=== PATIENT | female | born 1965 | race Caucasian/White ===

== ENCOUNTER → 2016-08-08 | Outpatient (CLI) | payer OTHER ==
[~2016-08-08] VITALS: Ht 175.3 cm; Wt 127.6 kg
[~2016-08-08] MED LIST: AMBIEN 5 MG TABL5 M1 PO; BUSPIRONE HCL10 MG PO; CYMBALTA60 MG PO; ELIQUIS5 MG PO; HYDROCHLOROTHIA25 M2 PO; IRON325 PO; LEVOTHYROXIN0.075 MG PO; LIPITOR10 MG PO; METHADONE HCL5 MG PO; NEURONTIN600 MG PO; VENTOLIN HFA 1818 GM INH; XANAX 0.25 MG0.25 MG PO; ZYPREXA20 MG PO
--- NOTE | ~2016-08-08 | HPC ---
[facility] [address] [address] PAIN MANAGEMENT CONSULTATION Name: JOSELITO LEES Room #: REG ATIF Fields#: [id number] Admission: 08/08/16 Attend Phys: Khang Francis DO Discharge: Date of : 67 Report #: [id number] THIS REPORT FOR: //name// CC: LUMA Francis HISTORY OF PRESENT ILLNESS: The patient is a 50-year-old female. She was prior seen 06/20/2016. We had continued the patient on methadone 5 mg q. 8 hours, gabapentin 600 mg 4 times a day. She notes she has 60% overall improvement of functional status with this medication. She returns to the pain clinic today. We had a prolonged visit from 8:30 to 9:00 a.m. The patient notes she was in the hospital in [facility] this past June. She tells me she had pneumonia and developed sepsis and was told she had acute renal failure and was "2 hours from dying." The latter statement seems rather dramatic. Nonetheless the patient did make a remarkable turnaround. She was in the hospital for 6-7 days. She notes she is doing reasonably well now, rates her pain as 6 on a 0-10 visual analog scale. Primary pain is in the mid low back, some radiating into the right hip. She notes medications are providing sufficient analgesia to participate in activities of daily living. States she still is slow to return to full activities due to deconditioning that occurred while she was ill. She was told that her renal function has returned to normal. I noted that methadone was a good analgesic to be on for renal function; however, I was concerned about gabapentin as it is 100% renally excreted. The patient is not showing any side effects from buildup of gabapentin metabolites. PHYSICAL EXAMINATION: GENERAL: She is a 50-year-old female. She remains moderately obese with a BMI of 41.5 kilograms per meter squared. VITAL SIGNS: Blood pressure is 129/79, pulse 90, respirations are 18. NEUROLOGIC: Alert and oriented to person, place and time, judged to be a reasonable historian. MUSCULOSKELETAL: Rises from chair using armrest. Tandem gait with diffuse tenderness across the low back. Lower extremity strength is symmetric, some pain with palpation over the right hip, though again notes significant change in gait compatible with significant degenerative joint disease, right hip. ASSESSMENT: Neuropathic pain requiring complex medication management status post decompressive laminectomy, chronic pain syndrome requiring complex medication management. RECOMMENDATIONS: We attempted to get urine drug screen at last visit, but the patient could not urinate. We have elected to get a serum screen today with the pain medication profile. We will also get a BUN and creatinine as well simply to follow up on renal function. I have taken the liberty of renewing current medications including methadone 5 mg q. 8 hours, 90 tablets with a release today in 4 weeks. Follow up in 2 months for reevaluation. [address] [address] PAIN MANAGEMENT CONSULTATION Name: JOSELITO LEES Room #: REG ATIF Fields#: [id number] Admission: 08/08/16 Attend Phys: Khang Francis DO Discharge: Date of : 67 Report #: [id number] We reviewed the fact that opiate medications are being used to provide analgesia adequate to support activities of daily living, not attempting to achieve a specific pain score on the 0-10 Visual Analog Scale. The current opiate medications are providing sufficient analgesia to allow the patient to participate in activities of daily living. The patient is not exhibiting any aberrant behavior suggestive of drug diversion. The patient is not having any adverse reactions to medications. The patient is not suffering from daytime somnolence or mental acuity changes. The patient is managing opiate-induced constipation with appropriate xqyc-pnl-zxvwsnn agents and dietary considerations. The patient was counseled on concern for caution with operating a motor vehicle while using opiate medications. A physical exam was performed and the patient's functional status was evaluated. All patients with back pain were advised against the bed rest greater than 4 days and were advised to return to normal activities. Pain score assessment was noted and the treatment plan was reviewed with the patient. All current medications, both prescribed and OTC were reviewed and reconciled on the electronic medical record. Tobacco screening was accomplished and smoking cessation was advised when indicated. BMI was noted and diet/exercise modification was recommended for all patients following outside normal parameters. I reviewed with the patient today their responsibilities to safeguard prescription medications, reviewed their responsibility to utilize medications only as prescribed by the physician. They are to seek and receive pain medications only from 1 physician group ( [facility]). They are to use 1 pharmacy and keep the clinic informed if they change pharmacies. Their responsibilities include making followup visits in a timely fashion and to avoid abrupt discontinuation of medication usage. Their responsibilities further include bringing their medications (bottles from the pharmacy with residual pills) to the visit for possible confirmation of pill counts and the patient understands it is their responsibility to submit to random drug screens to ensure both that the medications prescribed are present, and that no other controlled substances are present. All prescriptions provided today were generated electronically. <ELECTRONICALLY SIGNED> By: Khang Francis DO 08/11/16 1228 [id number] Khnag Francis, /nt
[2016-08-08 08:33] VITALS: BP 129/79
== END | disposition home or self-care (01) ==
LOC: PAIN 06:50
PROVIDERS: Anesthesiology Pain Medicine
DX: G62.9 Polyneuropathy, unspecified (principal); G89.4 Chronic pain syndrome

== ENCOUNTER → 2016-11-24 | Outpatient (CLI) | payer OTHER ==
[~2016-11-24] VITALS: Ht 175.3 cm; Wt 130.2 kg
[~2016-11-24] MED LIST changes: +APAP500 PO; +LEVOTHYROXINE0.05 MG PO
--- NOTE | ~2016-11-24 | HPC ---
[facility] [address] [address] PAIN MANAGEMENT CONSULTATION Name: JOSELITO LEES Room #: REG ATIF Fields#: [id number] Admission: 11/24/16 Attend Phys: Khang Francis DO Discharge: Date of : 67 Report #: [id number] THIS REPORT FOR: //name// CC: LUMA Francis The patient is a 51-year-old female being treated for neuropathic pain, status post lumbar decompressive laminectomy, requiring complex medication management. Last seen in the pain clinic on 08/08/2016. I had ordered a BUN and creatinine and a serum drug screen. Unfortunately, the drug screen seems to have been not accomplished; it was "lost" in the lab, however, the BUN and creatinine came back appropriate at 13 and 1.0. She returns to pain clinic today noting pain continues in the low back, right greater than left through the mid leg. She has chronic right foot drop and wears an AFO. She notes back pain was worse. The last 5 weeks, she was in [place], helping sell her [place] home and moving out. She also had a grandchild that was born in the interim. Apparently, they live in the [place] area. It is important because the patient was in [place] for a long time and ran out of her methadone, appropriately she weaned down rather than continuing 5 mg t.i.d. up to the end, she dropped down to b.i.d. and then at bedtime. With this, she noted significant increase in her pain up to an 8/10. Notes pain is in the right low back, exacerbated with standing, walking and stooping. She describes pain as constant, shooting, aching, pulling and throbbing. PHYSICAL EXAMINATION: Shows a 51-year-old female, moderately obese with a BMI of 42.4 kg/m2. Blood pressure is marginally elevated at 152/82, pulse 96, and respirations are 14. Alert and oriented to person, place and time, judged to be a reasonable historian. Cranial nerves 2-12 are grossly intact. She does have a little bit of disconjugate gaze. Rises from chair using armrest. Diffuse tenderness across the low back. Gait is tandem. Right leg shows some modest decrease in strength. Positive straight leg raise with chronic right anterior tibialis weakness and wearing a right AFO. ASSESSMENT: Neuropathic pain, requiring complex medication management, stable on baseline medications, status post lumbar decompressive laminectomy. RECOMMENDATION: Resume methadone 5 mg q. 8 hours, though I suggested that she start taking one in the morning for a few days and perhaps a half or 1 in the afternoon and we will evaluate what she needs. I have given her quantity sufficient to resume up to 3 a day (90 tablets with the second refill in 4 weeks). Follow up in 2 months for reevaluation. We will likely get a urine drug screen at that time. [address] [address] PAIN MANAGEMENT CONSULTATION Name: JOSELITO LEES Room #: MAGNUS Fields#: [id number] Admission: 11/24/16 Attend Phys: Khang Francis DO Discharge: Date of : 67 Report #: [id number] The patient was seen for a prolonged visit today, approximately 25 minutes was spent with the patient, counseling the patient regarding need to maintain steady dose of her current medication, although I did applaud her efforts at weaning down and we are always looking for the lowest dose possible, so hopefully since she did have a short opiate free "vacation," we can resume dose at a slightly lower level. Discharged in good and stable condition. <ELECTRONICALLY SIGNED> By: Khang Francis DO 11/26/16 0758 [id number] Khang Francis DO /nt
[2016-11-24 09:58] VITALS: BP 152/82
== END | disposition home or self-care (01) ==
LOC: PAIN 06:50
DX: M79.2 Neuralgia and neuritis, unspecified (principal); Z98.890 Other specified postprocedural states

== ENCOUNTER → 2017-01-22 | Outpatient (CLI) | payer OTHER ==
[~2017-01-22] VITALS: Ht 175.3 cm; Wt 128.8 kg
[2017-01-22 12:42] VITALS: BP 163/104
== END | disposition home or self-care (01) ==
LOC: PAIN 06:50
DX: G62.9 Polyneuropathy, unspecified (principal); Z98.890 Other specified postprocedural states; E66.01 Morbid (severe) obesity due to excess calories; Z68.41 Body mass index [BMI] 40.0-44.9, adult; I10 Essential (primary) hypertension

== ENCOUNTER → 2017-03-30 | Outpatient (CLI) | payer OTHER ==
[~2017-03-30] VITALS: Ht 175.3 cm; Wt 129.7 kg
--- NOTE | ~2017-03-30 | HPC ---
[facility] [address] [place] [address] PAIN MANAGEMENT CONSULTATION Name: JOSELITO LEES Room #: REG ATIF Fields#: [id number] Admission: 03/30/17 Attend Phys: Khang Francis DO Discharge: Date of : 67 Report #: [id number] THIS REPORT FOR: //name// CC: Khang Nuñez HISTORY OF PRESENT ILLNESS: The patient is a 51-year-old female being treated for lumbar radiculopathy, status post decompressive laminectomy, and axial back pain requiring high-risk complex medication management. Comorbidity includes history of cervical radiculopathy, status post decompressive laminectomy and morbid obesity. The patient was initially seen by myself on 03/06/2016. Somewhat self-referred to the pain clinic having relocated from [place]. She is status post lumbar decompressive laminectomy with ongoing neuropathic pain. She had notes from prior treating physician in [place], [place]. She had had a copious number of epidural injections (30?), RFL with nominal efficacy. She has continued on gabapentin 600 mg 4 times a day. Had been on opiates since around 2008 but switched to fentanyl in August up to 50 mcg q. 72 hours, but she ran out of that medication. She had gone through fulminant withdrawal and was actually doing moderately well when I saw her. We ultimately elected to start the patient on methadone 5 mg q. 8 hours. She followed up in March doing reasonably well with the methadone 5 mg q. 8 hours and gabapentin 600 mg 4 times a day. This continued through the winter. I did get a buccal swab on her 01/22/2017 followup. The swab was negative for methadone and positive for gabapentin. The patient stated that she had "run out" of her methadone. She presents to the pain clinic today. Ostensibly, I was going to repeat the buccal swab, but she tells me she again has been out of her methadone for 4 days, and again this is appropriate with the dates. She simply has been negligent in making her followup appointments. She states she had no opiate withdrawal when she ran out of her 15 mg methadone a day, but she states her pain did increase. Currently, she presents to pain clinic today noting her subjective pain as a 7/10, primarily right buttock and leg, constant, pulling, throbbing sensation. Pain is exacerbated with standing, bending and lifting. PHYSICAL EXAMINATION: Shows a 51-year-old female, BMI is elevated at 42.2 kilograms per meter squared. Blood pressure is modestly elevated at 163/82, pulse 70, respirations are 18. Alert and oriented to person, place and time, judged to be a reasonable historian. Rises from chair using armrest. Modestly antalgic gait. Diffuse tenderness across the low back. Slight decreased right hip flexion strength. [address] [address] PAIN MANAGEMENT CONSULTATION Name: JOSELITO LEES Room #: REG [facility] Donnie#: [id number] Admission: 03/30/17 Attend Phys: Khang Francis, DO Discharge: Date of : 67 Report #: [id number] We reviewed the fact that opiate medications are being used to provide analgesia adequate to support activities of daily living, not attempting to achieve a specific pain score on the 0-10 Visual Analog Scale. The current opiate medications are providing sufficient analgesia to allow the patient to participate in activities of daily living. The patient is not exhibiting any aberrant behavior suggestive of drug diversion. The patient is not having any adverse reactions to medications. The patient is not suffering from daytime somnolence or mental acuity changes. The patient is managing opiate-induced constipation with appropriate fgli-yor-piqibkz agents and dietary considerations. The patient was counseled on concern for caution with operating a motor vehicle while using opiate medications. A physical exam was performed and the patient's functional status was evaluated. All patients with back pain were advised against the bed rest greater than 4 days and were advised to return to normal activities. Pain score assessment was noted and the treatment plan was reviewed with the patient. All current medications, both prescribed and OTC were reviewed and reconciled on the electronic medical record. Tobacco screening was accomplished and smoking cessation was advised when indicated. BMI was noted and diet/exercise modification was recommended for all patients following outside normal parameters. I reviewed with the patient today their responsibilities to safeguard prescription medications, reviewed their responsibility to utilize medications only as prescribed by the physician. They are to seek and receive pain medications only from 1 physician group ( [facility]). They are to use 1 pharmacy and keep the clinic informed if they change pharmacies. Their responsibilities include making followup visits in a timely fashion and to avoid abrupt discontinuation of medication usage. Their responsibilities further include bringing their medications (bottles from the pharmacy with residual pills) to the visit for possible confirmation of pill counts and the patient understands it is their responsibility to submit to random drug screens to ensure both that the medications prescribed are present, and that no other controlled substances are present. All prescriptions provided today were generated electronically. ASSESSMENT: Symptomatic lumbar radiculopathy, status post decompressive laminectomy, and axial back pain requiring high-risk complex medication management. Comorbidities include morbid obesity and prior history of cervical decompressive laminectomy. RECOMMENDATION: Discussed with the patient today the importance of taking her medications on a regular basis and being responsible for her followup appointments. I have written for 1 prescription for methadone 5 mg q. 8 hours, [facility] [address] [place] [address] PAIN MANAGEMENT CONSULTATION Name: JOSELITO LEES Room #: MAGNUS Fields#: [id number] Admission: 03/30/17 Attend Phys: Khang Francis DO Discharge: Date of : 67 Report #: [id number] limit 90 tablets. Renewed gabapentin 600 mg t.i.d. Follow up in 4 weeks for reevaluation. We will check a buccal swab at that time. By: [id number] Khang Francis DO /nt
[2017-03-30 11:14] VITALS: BP 163/82
== END | disposition home or self-care (01) ==
LOC: PAIN 03-19 09:51
DX: M54.16 Radiculopathy, lumbar region (principal); Z98.890 Other specified postprocedural states; M54.12 Radiculopathy, cervical region; E66.01 Morbid (severe) obesity due to excess calories; G62.9 Polyneuropathy, unspecified; Z68.41 Body mass index [BMI] 40.0-44.9, adult